=== PATIENT | male | born 1995 ===

== ENCOUNTER 2023-05-09 22:26 | Emergency (ER) | payer BC ==
[2023-05-09 23:29] LABS: Bacteria/HPF None Seen HPF (None Seen); Bilirubin Negative (Negative); Blood, Urine Negative (Negative); CAUTI Indications for Culture Pelvic or flank pain; Clarity Clear (Clear); Glucose, Urine (Dipstick) Normal (Negative); Ketone, Urine Negative (Negative); Leukocyte Negative Leu/uL (Negative); Nitrite Negative (Negative); Protein, Urine (Dipstick) Negative (Neg-Trace); RBC/HPF None Seen HPF (0-3); Specific Gravity, Urine 1.005 (1.002-1.036); Squamous Epithelial None Seen HPF (0-3); Urobilinogen Normal mg/dL (Less than 2); WBC/HPF None Seen HPF (0-3); pH, Urine 6.5 (5.0-9.0)
[2023-05-09 23:31] LABS: Urine Culture Reflex No No
[2023-05-09 23:34] LABS: #Basophils 0.1 thou/uL (0.0-0.2); #Eosinphils 0.1 thou/uL (0.0-0.7); #Monocytes 0.6 thou/uL (0.11-0.59); #Neutrophils 3.7 thou/uL (1.40-6.50); %Basophils 0.8 % (0.0-1.0); %Lymphocytes 33.1 % (21.0-51.0); %Monocytes 8.3 % (0.0-10.0); %Neutrophils 55.5 % (42.0-75.0); Hematocrit 38.1 % (42.0-52.0); Hemoglobin 12.6 g/dL (14.0-18.0); Mean Corpuscular HGB CONC 33.1 g/dL (32.0-36.0); Mean Corpuscular Hemoglobin 29.2 pg (27.0-31.0); Mean Corpuscular Volume 88.4 fl (78.0-98.0); Platelet Count 279 10x3/uL (130-400); RBC Distribution Width 12.2 % (11.5-14.5); Red Blood Cell (RBC) Count 4.31 mill/uL (4.70-6.10); White Blood Cell (WBC) Count 6.6 10x3/uL (4.8-10.8)
[2023-05-09 23:47] LABS: SARS-CoV-2 NAA Rapid Test Not Detected (NotDetected)
[2023-05-09 23:57] LABS: ALT (SGPT) 53 U/L (8-55); AST (SGOT) 31 U/L (5-34); Albumin 4.5 g/dL (3.5-5.0); Alkaline Phosphatase 67 U/L (40-110); Anion Gap 9 mmol/L (10-20); BUN (Urea Nitrogen) 10 mg/dL (8.9-20.6); Bilirubin, Total 0.4 mg/dL (0.2-1.2); CK (CPK) 113 U/L (30-200); Calc. Creatinine Clearance 0 mL/min (70-130); Calcium 9.4 mg/dL (7.8-10.44); Carbon Dioxide 23 mmol/L (22-29); Chloride 106 mmol/L (98-107); Estimated GFR 96; Glucose 96 mg/dL (70-105); Lipase 23 U/L (8-78); Potassium 3.6 mmol/L (3.5-5.1); Protein, Total 7.5 g/dL (6.0-8.3); Sodium 134 mmol/L (136-145)
[2023-05-10] MEDS ORDERED: Mag-Al 1200 mg/1200 mg/30 ML UDCUP ONE (00:04)
[2023-05-10] MEDS ORDERED: Dicyclomine 20 MG TAB ONE (00:04)
== END 2023-05-10 00:38 | disposition home or self-care (01) ==
LOC: ERS 22:26
DX: K29.70 Gastritis, unspecified, without bleeding (principal); E03.9 Hypothyroidism, unspecified; Z20.822 Contact with and (suspected) exposure to COVID-19
CPT/HCPCS: 36415; 36416; 80053; 81001; 82550; 83690; 85025; 99284